=== PATIENT | male | born 1970 | race Caucasian/White ===

== ENCOUNTER 2023-04-09 21:52 | Emergency (ER) | payer MEDICAID, OTHER ==
[~2023-04-09] VITALS: Ht 182.9 cm; Wt 122.5 kg
[2023-04-09 22:09] VITALS: BP 181/110; TEMP 98
[2023-04-09] MEDS ORDERED: NALO4SPR BNOSTRILS (23:37)
[2023-04-10] VITALS: O2SAT 100
== END 2023-04-10 00:46 | disposition home or self-care (01) ==
LOC: ER 21:55
DX: T40.411A Poisoning by fentanyl or fentanyl analogs, accidental (unintentional), initial encounter (principal); E11.9 Type 2 diabetes mellitus without complications; Z79.899 Other long term (current) drug therapy; Z60.2 Problems related to living alone; Y92.89 Other specified places as the place of occurrence of the external cause